=== PATIENT | male | born 1980 | race Caucasian/White ===

== ENCOUNTER 2019-12-23 14:57 | Emergency (ER) | payer OTHER, MEDICAID ==
--- NOTE | 2019-12-23 15:13 | EDM.PDOC ---
ED HPI GENERAL MEDICAL PROBLEM - General Chief Complaint: ENT Problem Stated Complaint: INFECTED TOOTH Time Seen by Provider: 12/23/19 15:13 Source of Information: Reports: Patient History Limitations: Reports: No Limitations - History of Present Illness INITIAL COMMENTS - FREE TEXT/NARRATIVE: Dental irritation starting yesterday, worsening today. States full taste in mouth times. Has limited intake secondary of discomfort with chewing and even drinking. Has no other complaint denies fever chills or any other factors. Has made contact and will be seeing dentist tomorrow. States this is very similar to previous event on the other side of his mouth due to dental carry with infection. Onset: Sudden Onset Date: 12/22/19 Onset Time: 12:00 Duration: Hour(s): Location: Reports: Face Quality: Reports: Ache, Pressure, Same as Previous Episode Severity: Moderate Improves with: Reports: None Worsens with: Reports: Eating Associated Symptoms: Reports: No Other Symptoms Left Jaw Pain Score (Numeric/FACES): 9 - Related Data Allergies Allergy/AdvReac Type Severity Reaction Status Date / Time No Known Allergies Allergy Verified 12/23/19 15:23 Home Meds: Home Meds Amoxicillin 875 mg PO BID 7 Days #14 tab 12/23/19 [Rx] Ketorolac [Toradol] 10 mg PO TID PRN 5 Days #15 tab 12/23/19 [Rx] Past Medical History HEENT History: Reports: Other (See Below) (Dental concerns.) Cardiovascular History: Reports: None Respiratory History: Reports: None Social & Family History - Family History Family Medical History: Noncontributory - Living Situation & Occupation Living situation: Reports: with Significant Other Occupation: Employed ED ROS GENERAL - Review of Systems Review Of Systems: Comprehensive ROS is negative, except as noted in HPI. Constitutional: Reports: No Symptoms HEENT: Reports: Dental Pain Respiratory: Reports: No Symptoms Cardiovascular: Reports: No Symptoms GI/Abdominal: Reports: No Symptoms ED EXAM, GENERAL - Physical Exam Exam: See Below Free Text/Narrative:: Alert oriented in minimal distress. HEENT shows significant inflammation as well as tenderness to percussion of #20. Numerous extractions with caps/crowns are in place with #15 showing significant filling depth and questionable small carry. Neck is soft supple no lymphadenopathy. Thorax is clear no wheezes no crackles. Cardiac is regular. Course - Orders/Labs/Meds Orders: Active Orders 24 hr Category Date Time Status Acetaminophen/HYDROcodone [[place] 325-5 MG] Med 12/23/19 15:21 Active 3 tab PO Q6H PRN Medication Orders Hydrocodone Bitart/Acetaminophen ([place] 325-5 Mg) 3 tab PO Q6H PRN PRN Reason: Dental pain Meds: Medications Generic Name Dose Route Start Last Admin Trade Name Freq PRN Reason Stop Dose Admin Hydrocodone Bitart/Acetaminophen 3 tab 12/23/19 15:21 [place] 325-5 Mg PO Q6H PRN Dental pain Discontinued Medications Generic Name Dose Route Start Last Admin Trade Name Freq PRN Reason Stop Dose Admin Amoxicillin 1,000 mg 12/23/19 15:20 12/23/19 15:34 Amoxil PO 12/23/19 15:21 1,000 mg ONETIME ONE Administration Amoxicillin 500 mg 12/23/19 15:20 Amoxil PO 12/23/19 15:21 ONETIME ONE Ketorolac Tromethamine 60 mg 12/23/19 15:20 12/23/19 15:30 Toradol IM 12/23/19 15:21 60 mg ONETIME ONE Administration Departure - Departure Time of Disposition: 15:31 Disposition: Home, Self-Care 01 Condition: Good Clinical Impression: Dental infection, Pain, dental - Discharge Information *PRESCRIPTION DRUG MONITORING PROGRAM REVIEWED*: No *COPY OF PRESCRIPTION DRUG MONITORING REPORT IN PATIENT ZHENG: No Prescriptions: Amoxicillin 875 mg PO BID 7 Days #14 tab Ketorolac [Toradol] 10 mg PO TID PRN 5 Days #15 tab PRN Reason: Pain/Fever Instructions: Dental Abscess Referrals: Na Marquez PA-C [Primary Care Provider] - Forms: ED Department Discharge Additional Instructions: You have been given the initial dose of antibiotic here in the emergency department as well as an injection for pain. You will be sent home with an antibiotic to be taken tonight at bedtime and there will be a prescription for you at the pharmacy to chart picker tomorrow. You have also been given pain pills to be taken when at home, no driving or operating equipment when taking them. There will be a prescription at the pharmacy for that also. Avoid any trauma to the surrounding area chewing with the right side as much as possible. - Problem List & Annotations (1) Pain, dental SNOMED Code(s): 27337788 Code(s): K08.89 - OTHER SPECIFIED DISORDERS OF TEETH AND SUPPORTING STRUCTURES Status: Acute Current Visit: Yes Onset Date: ~12/22/19 Annotation/Comment:: 20. (2) Dental infection SNOMED Code(s): 151624849 Code(s): K04.7 - PERIAPICAL ABSCESS WITHOUT SINUS Status: Acute Priority: High Current Visit: Yes Onset Date: ~12/22/19 Annotation/Comment:: Dentition #20 irritated gumline as well as tenderness to percussion - Problem List Review Problem List Initiated/Reviewed/Updated: Yes - My Orders Last 24 Hours: My Active Orders 12/23/19 15:21 Acetaminophen/HYDROcodone [[place] 325-5 MG] 3 tab PO Q6H PRN - Assessment/Plan Last 24 Hours: My Active Orders 12/23/19 15:21 Acetaminophen/HYDROcodone [[place] 325-5 MG] 3 tab PO Q6H PRN Plan: You have been given the initial dose of antibiotic here in the emergency department as well as an injection for pain. You will be sent home with an antibiotic to be taken tonight at bedtime and there will be a prescription for you at the pharmacy to chart picker tomorrow. You have also been given pain pills to be taken when at home, no driving or operating equipment when taking them. There will be a prescription at the pharmacy for that also. Avoid any trauma to the surrounding area chewing with the right side as much as possible.
[2019-12-23] MEDS ORDERED: Amoxicillin 500 MG Cap PO ONE ×2 (15:20)
[2019-12-23] MEDS ORDERED: Ketorolac 60 MG/2 ML SDV IM ONE (15:20)
[2019-12-23] MEDS ORDERED: Acetaminophen/HYDROcodone 325-5 MG Tab PO PRN (15:21)
[2019-12-23 18:14] VITALS: BP 128/79; PULSE 60
== END 2019-12-23 16:05 | disposition home or self-care (01) ==
LOC: KA.ED 14:57
DX: K04.7 Periapical abscess without sinus (principal); K02.9 Dental caries, unspecified
CPT/HCPCS: 96372; 99282; 99283; A9270-GY; J1885

== ENCOUNTER 2021-12-07 09:58 | Emergency (ER) | payer BC ==
[2021-12-07] MEDS ORDERED: Albuterol/Ipratropium 3.0-0.5 MG/3 ML Neb Soln INH ONE (10:25)
[2022-01-07 11:09] LABS: ANION GAP 14.4 mmol/L (5-15); CHLORIDE,CL 105 mmol/L (98-115); ESTIMATED GFR 101 mL/min (>=60); SODIUM,NA 142 mmol/L (136-145)
[2022-01-07 11:16] LABS: CORONAVIRUS COVID-19 NAA NEGATIVE (NEGATIVE); RESPIRATORY SYNCYTIAL VIR NAA NEGATIVE (NEGATIVE)
== END 2021-12-07 12:25 | disposition home or self-care (01) ==
LOC: KA.ED 09:58
DX: J40 Bronchitis, not specified as acute or chronic (principal); F17.210 Nicotine dependence, cigarettes, uncomplicated; Z20.822 Contact with and (suspected) exposure to COVID-19
CPT/HCPCS: 0241U; 36415; 71046; 80053; 83605; 83880; 84484; 85025; 85379; 87040; 93005; 94640; 99285; J7620-GY